=== PATIENT | female | born 2000 | race Caucasian/White ===

== ENCOUNTER 2018-09-09 10:57 | Inpatient (IN) | payer OTHER, MEDICAID ==
[2018-09-09 12:23] LABS: ADD MAN DIFF? NO
[2018-09-09 12:42] LABS: WHITE BLOOD COUNT 7.9 10^3/ul (4.8-10.8)
[2018-09-09 12:42] LABS: BASOPHIL # 0.1 10^3/ul (0.0-0.1); BASOPHILS % 0.6 % (0.0-2.0); EOSINOPHILS # 0.1 10^3/ul (0.0-0.5); EOSINOPHILS % 0.8 % (0.0-7.0); HEMATOCRIT 39.2 % (37.0-47.0); LYMPHOCYTES # 2.5 10^3/ul (0.8-2.9); LYMPHOCYTES % 31.6 % (18.0-55.0); MEAN CORPUSCULAR HEMOGLOBIN 29.1 pg (29.0-33.0); MEAN CORPUSCULAR HGB CONC 33.2 g/dl (32.0-37.0); MEAN CORPUSCULAR VOLUME 87.7 fl (72.0-104.0); MEAN PLATELET VOLUME 11.5 fl (7.4-10.4); MONOCYTE # 0.6 10^3/ul (0.3-0.9); MONOCYTES % 7.7 % (0.0-13.0); NEUTROPHIL # 4.7 10^3/ul (1.6-7.5); NEUTROPHILS % 58.9 % (30.0-74.0); PLATELET COUNT 311 10^3/UL (140-415); RED BLOOD COUNT 4.47 10^6/ul (4.20-5.40); RED CELL DISTRIBUTION WIDTH 12.5 % (11.5-14.5)
[2018-09-09 12:43] LABS: INR 0.87; PROTIME 11.9 Sec (11.9-14.9); PT RATIO 0.9
[2018-09-09 12:44] LABS: PARTIAL THROMBOPLASTIN TIME 25.8 Sec (23.0-35.0)
[2018-09-09 12:45] LABS: ALANINE AMINOTRANSFERASE 19 IU/L (13-69); ALBUMIN 4.8 g/dl (3.3-4.9); ALBUMIN/GLOBULIN RATIO 1.33; ALKALINE PHOSPHATASE 67 IU/L (42-121); ANION GAP 9 (5-13); ASPARTATE AMINO TRANSFERASE 28 IU/L (15-46); BILIRUBIN,INDIRECT 0.6 mg/dl (0-1.1); BILIRUBIN,TOTAL 0.6 mg/dl (0.2-1.3); BLOOD UREA NITROGEN 11 mg/dl (7-20); CALCIUM 9.9 mg/dl (8.4-10.2); CARBON DIOXIDE 24 mmol/L (21-31); CHLORIDE 108 mmol/L (97-110); Estimated GFR > 60 mL/min (>60); GLUCOSE 87 mg/dl (70-220); POTASSIUM 4.1 mmol/L (3.5-5.1); SODIUM 141 mmol/L (135-144); TOTAL PROTEIN 8.4 g/dl (6.1-8.1)
[2018-09-09] MEDS ORDERED: ROCURONIUM 50 MG INJ (13:25)
[2018-09-09] MEDS ORDERED: LIDOCAINE 2% (SDV) 5 ML INJ (13:25)
[2018-09-09] MEDS ORDERED: MIDAZOLAM 1 MG/ML 2 ML INJ (13:25)
[2018-09-09] MEDS ORDERED: morphine SULFATE/PF (10 MG/10 ML) INJ (13:25)
[2018-09-09] MEDS ORDERED: HYDROmorphONE 0.5 MG/0.5 ML SYG IV ×2 (13:30)
[2018-09-09] MEDS ORDERED: DIPHENHYDRAMINE 50 MG INJ IV (13:30)
[2018-09-09] MEDS ORDERED: ROPIVACAINE 0.5 % 30 ML VIAL (13:30)
[2018-09-09] MEDS ORDERED: KETOROLAC 30 MG INJ IV (13:30)
[2018-09-09] MEDS ORDERED: NALOXONE (0.4 MG/ML) INJ IV (13:30)
[2018-09-09] MEDS ORDERED: ZOLPIDEM 5 MG TAB PO (13:30)
[2018-09-09] MEDS ORDERED: HYDROmorphONE 1 MG/5 ML IV SYRINGE IV ×4 (13:30→15:00)
[2018-09-09] MEDS ORDERED: MEPERIDINE 25 MG INJ IV ×2 (13:30→15:00)
[2018-09-09] MEDS ORDERED: ONDANSETRON 4 MG INJ IV ×3 (13:30→15:00)
[2018-09-09] MEDS ORDERED: ONDANSETRON 4 MG INJ (13:35)
[2018-09-09] MEDS ORDERED: CEFAZOLIN 1 GM INJ (13:35)
[2018-09-09] MEDS ORDERED: BUPIVACAINE 0.25%/EPI (SDV) 30 ML INJ (14:04)
[2018-09-09] MEDS: BUPIVACAINE 0.25%/EPI (SDV) 30 ML INJ INJ (14:15)
[2018-09-09] MEDS ORDERED: SUGAMMADEX SODIUM 200 MG/2 ML VIAL IV (14:28)
[2018-09-09] MEDS ORDERED: ACETAMINOPHEN 500 MG TAB PO (14:47)
[2018-09-09] MEDS ORDERED: KETOROLAC 60 MG INJ IM (14:47)
[2018-09-09] MEDS ORDERED: FENTAnyl 50 MCG/ML VIAL IV ×2 (15:00)
[2018-09-09] MEDS ORDERED: morphine 2 MG INJ IV (15:00)
[2018-09-09] MEDS ORDERED: METOCLOPRAMIDE 10 MG INJ IV (15:00)
[2018-09-09] MEDS ORDERED: HYDROCODONE/APAP (10/325) TAB PO (15:30)
[2018-09-09] MEDS ORDERED: HYDROCODONE/APAP (5/325) TAB PO (15:30)
[2018-09-09] MEDS ORDERED: CEFAZOLIN 2 GM/50 ML (PMX) 50 ML IVPB (15:30)
[2018-09-09] MEDS: ONDANSETRON 4 MG INJ IV ×2 (15:58→21:28)
[2018-09-09] MEDS: IBUPROFEN 600 MG TAB PO ×2 (17:38→21:30)
[2018-09-09] MEDS: LACTATED RINGER'S 1,000 ML IV (17:38)
[2018-09-09] MEDS: CLINDAMYCIN 300 MG CAP PO (19:07)
[2018-09-09] MEDS: CEFAZOLIN 2 GM/50 ML (PMX) 50 ML IVPB (20:48)
[2018-09-10] MEDS: CLINDAMYCIN 300 MG CAP PO ×4 (00:15→18:10)
[2018-09-10] MEDS: LACTATED RINGER'S 1,000 ML IV ×3 (01:07→13:52)
[2018-09-10] MEDS: IBUPROFEN 600 MG TAB PO ×3 (03:30→15:02)
[2018-09-10 05:21] LABS: ADD MAN DIFF? NO
[2018-09-10 05:28] LABS: BASOPHILS % 0.2 % (0.0-2.0); EOSINOPHILS % 0.1 % (0.0-7.0); HEMATOCRIT 34.2 % (37.0-47.0); HEMOGLOBIN 11.1 g/dl (12.0-16.0); LYMPHOCYTES # 1.9 10^3/ul (0.8-2.9); LYMPHOCYTES % 12.9 % (18.0-55.0); MEAN CORPUSCULAR HEMOGLOBIN 28.8 pg (29.0-33.0); MEAN CORPUSCULAR HGB CONC 32.5 g/dl (32.0-37.0); MEAN CORPUSCULAR VOLUME 88.8 fl (72.0-104.0); MEAN PLATELET VOLUME 11.4 fl (7.4-10.4); MONOCYTE # 1.2 10^3/ul (0.3-0.9); NEUTROPHIL # 11.8 10^3/ul (1.6-7.5); NEUTROPHILS % 78.4 % (30.0-74.0); PLATELET COUNT 248 10^3/UL (140-415); RED BLOOD COUNT 3.85 10^6/ul (4.20-5.40); RED CELL DISTRIBUTION WIDTH 12.7 % (11.5-14.5)
[2018-09-10] MEDS: CEFAZOLIN 2 GM/50 ML (PMX) 50 ML IVPB ×2 (06:03→14:56)
[2018-09-10] MEDS: BISACODYL 10 MG SUPP PR (11:25)
[2018-09-10] MEDS ORDERED: ACETAMINOPHEN 325 MG TAB PO (19:00)
[2018-09-10] MEDS ORDERED: BENZOIN TINCTURE 60 ML BTL TOP ×2 (19:00→19:30)
[2018-09-10] MEDS ORDERED: PROPOFOL 200 MG INJ IV (20:59)
== END 2018-09-10 21:00 | disposition home or self-care (01) | DRG 743 ==
LOC: SDS 10:57 → REC 15:41 → 2NE 17:05
PROC: 0UB00ZZ Excision of Right Ovary, Open Approach (ICD-10-PCS; principal; 2018-09-09 13:00)
DX: D27.0 Benign neoplasm of right ovary (principal)
CPT/HCPCS: 80053; 84703; 85025; 85610; 85730; 88305

== ENCOUNTER 2018-09-21 16:38 | Emergency (ER) | payer OTHER ==
[2018-09-21 19:38] LABS: ADD MAN DIFF? NO
[2018-09-21 19:53] LABS: WHITE BLOOD COUNT 12.9 10^3/ul (4.8-10.8)
[2018-09-21 19:53] LABS: BASOPHILS % 0.3 % (0.0-2.0); EOSINOPHILS # 0.1 10^3/ul (0.0-0.5); EOSINOPHILS % 0.9 % (0.0-7.0); HEMATOCRIT 42.6 % (37.0-47.0); HEMOGLOBIN 13.8 g/dl (12.0-16.0); LYMPHOCYTES # 3.1 10^3/ul (0.8-2.9); LYMPHOCYTES % 24.4 % (18.0-55.0); MEAN CORPUSCULAR HEMOGLOBIN 28.4 pg (29.0-33.0); MEAN CORPUSCULAR HGB CONC 32.4 g/dl (32.0-37.0); MEAN CORPUSCULAR VOLUME 87.7 fl (72.0-104.0); MEAN PLATELET VOLUME 11.2 fl (7.4-10.4); MONOCYTE # 0.8 10^3/ul (0.3-0.9); MONOCYTES % 6.3 % (0.0-13.0); NEUTROPHIL # 8.7 10^3/ul (1.6-7.5); NEUTROPHILS % 67.8 % (30.0-74.0); PLATELET COUNT 349 10^3/UL (140-415); RED BLOOD COUNT 4.86 10^6/ul (4.20-5.40); RED CELL DISTRIBUTION WIDTH 12.5 % (11.5-14.5)
[2018-09-21 19:58] LABS: ADD UMIC YES; UR ASCORBIC ACID NEGATIVE (NEGATIVE); UR BACTERIA FEW /HPF (NONE SEEN); UR BILIRUBIN (Dip) NEGATIVE (NEGATIVE); UR BLOOD (Dip) NEGATIVE (NEGATIVE); UR CLARITY SLIGHTLY CLOUDY (CLEAR); UR COLOR YELLOW (YELLOW); UR GLUCOSE (Dip) NEGATIVE (NEGATIVE); UR KETONES (Dip) NEGATIVE (NEGATIVE); UR LEUKOCYTE ESTERASE (Dip) 1+ Leu/ul (NEGATIVE); UR MUCUS FEW /HPF (NONE SEEN); UR NITRITE (Dip) NEGATIVE (NEGATIVE); UR RBC 2 /HPF (0-5); UR SPECIFIC GRAVITY (Dip) 1.019 (1.003-1.030); UR TOTAL PROTEIN (Dip) NEGATIVE (NEGATIVE); UR UROBILINOGEN (Dip) NEGATIVE (NEGATIVE); UR WBC 35 /HPF (0-5)
[2018-09-21 20:11] LABS: ALANINE AMINOTRANSFERASE 12 IU/L (13-69); ALBUMIN 4.9 g/dl (3.3-4.9); ALBUMIN/GLOBULIN RATIO 1.13; ALKALINE PHOSPHATASE 88 IU/L (42-121); ANION GAP 13 (5-13); ASPARTATE AMINO TRANSFERASE 21 IU/L (15-46); BILIRUBIN,INDIRECT 0.4 mg/dl (0-1.1); BILIRUBIN,TOTAL 0.4 mg/dl (0.2-1.3); BLOOD UREA NITROGEN 13 mg/dl (7-20); CARBON DIOXIDE 23 mmol/L (21-31); CHLORIDE 105 mmol/L (97-110); Estimated GFR > 60 mL/min (>60); GLUCOSE 101 mg/dl (70-220); SODIUM 141 mmol/L (135-144); TOTAL PROTEIN 9.2 g/dl (6.1-8.1)
== END 2018-09-21 22:56 | disposition home or self-care (01) ==
LOC: FTE 16:38
DX: N39.0 Urinary tract infection, site not specified (principal); Z48.01 Encounter for change or removal of surgical wound dressing
CPT/HCPCS: 76856; 80053; 81001; 81025; 83605; 85025; 99284-25